=== PATIENT | female | born 1955 | race Caucasian/White ===

== ENCOUNTER → 2017-01-21 | Outpatient (CLI) | payer BC ==
[2017-01-21 08:01] LABS: CHOL/HDL RATIO 5.17 RATIO (0-4.0); LDL CHOLESTEROL,CALCULATED 120.6 mg/dL
[2017-01-21 08:01] LABS: BLOOD UREA NITROGEN 17 mg/dL (7-22); BUN/CREATININE RATIO 24.28 (6-20); CALCIUM 9.4 mg/dL (8.7-10.7); EST GLOMERULAR FILTRATION > 60 (>60 ml/min/1.73m(2)); SERUM ALBUMIN 4.3 g/dL (3.5-4.8)
[2017-01-21 08:02] LABS: HEMATOCRIT 42.7 % (37.0-47.0); HEMOGLOBIN 14.5 g/dL (12.0-16.0); MEAN CORPUSCULAR HEMOGLOBIN 27.6 PG (27-31); MEAN CORPUSCULAR VOLUME 81.2 FL (81-99); MEAN PLATELET VOLUME 9.8 FL (7.4-12.2); RED BLOOD COUNT 5.26 10^6/uL (4.20-5.40)
[2017-01-21 08:21] LABS: HEMOGLOBIN A1C 5.41 % (4.2-6.0)
[2017-01-21 08:32] LABS: FREE T4 (FREE THYROXINE) 1.36 ng/dL (0.93-1.71)
== END ==
LOC: LAB 07:33
PROVIDERS: ATTEND Family Medicine
DX: Z00.00 Encounter for general adult medical examination without abnormal findings (principal); E78.5 Hyperlipidemia, unspecified; E03.9 Hypothyroidism, unspecified
CPT/HCPCS: 36415; 80053; 80061; 83036; 84439; 84443; 85027